=== PATIENT | male | born 1980 | race African-American/Black ===

== ENCOUNTER 2022-04-27 12:25 | Emergency (ER) | payer BC, SELFPAY ==
--- NOTE | ~2022-04-27 | CT_ITS ---
EXAMINATION: CT brain wo con DATE: 04/27/2022 13:17 INDICATION: Head injury. TECHNIQUE: Computed tomography (CT) of the head was performed without intravenous contrast. The mA wa s adjusted according to patient size. Iterative reconstruction technique was employed. The dose-lengt h product was 605.33 mGy-cm. COMPARISON: None FINDINGS: There is an old infarct in the left frontal lobe. There is no intracranial hemorrhage, acut e infarction, or abnormal intracranial mass lesion. The ventricles are normal in size. There is mild mucosal thickening in the paranasal sinuses. The orbits are normal. The mastoid air cells are normal. IMPRESSION: 1. 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 Reviewed, dictated and finalized at location A. [employer]
--- NOTE | ~2022-04-27 | XR_ITS ---
EXAMINATION: XR hand RT min 3V DATE: 04/27/2022 13:22 INDICATION: Right hand injury and pain. TECHNIQUE: 3 views of right hand were obtained. COMPARISON: None. FINDINGS: Bone alignment is normal. No fracture. There is mild osteoarthritis of second and third met acarpophalangeal joints. There is an old healed fracture of dorsal base of fourth distal phalanx with moderate secondary osteoarthritis of fourth distal interphalangeal joint. IMPRESSION: 1. Polyarticular osteoarthritis. Reviewed, dictated and finalized at location A. [employer]ATOR
[2022-04-27 12:30] VITALS: BP 152/97; PULSE 85; RESP 18; TEMP 36.1; O2SAT 100
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
[2022-04-27 14:41] VITALS: BP 148/100; PULSE 74; RESP 16; O2SAT 99
== END 2022-04-27 14:43 | disposition home or self-care (01) ==
PROVIDERS: Emergency Provider Emergency Medicine
DX: S09.90XA Unspecified injury of head, initial encounter (principal); M19.041 Primary osteoarthritis, right hand; Y00.XXXA Assault by blunt object, initial encounter
CPT/HCPCS: 70450; 73130; 99284